=== PATIENT | female | born 1995 | race Caucasian/White ===

== ENCOUNTER 2018-03-04 19:35 | Emergency (ER) | payer SELFPAY ==
[2018-03-04 20:05] VITALS: RESP 18
[2018-03-04 20:36] LABS: SQUAMOUS EPITHIAL 2 /hpf (0-5); URINE BILIRUBIN NEGATIVE (NEGATIVE); URINE BLOOD NEGATIVE (NEGATIVE); URINE CLARITY Clear (Clear); URINE COLOR Yellow (YELLOW); URINE GLUCOSE (UA) NORMAL (Normal); URINE LEUKOCYTE ESTERASE TRACE Leu/uL (Negative); URINE PROTEIN NEGATIVE (NEGATIVE); URINE UROBILINOGEN NORMAL mg/dL (0.2-1.0)
[2018-03-04 20:37] LABS: HCG,QUALITATIVE URINE NEGATIVE (NEGATIVE)
--- NOTE | 2018-03-04 20:47 | C.PDOC ---
History Of Present Illness 23 y/o female, w/ PMhx of GERD, presents to the ER complaining of LLQ and periumbilical abdominal pain which began yesterday. Patient states that the symptoms do not feel similar to her previous episodes of GERD. Patient reports that she did not take any medications for the pain. She notes that she had her LMP on 02/12/18, it was normal. Denies having nausea, vomiting, constipation, diarrhea, dysuria, and hematuria. Time Seen by Provider: 03/04/18 20:43 Chief Complaint (Nursing): Abdominal Pain History Per: Patient History/Exam Limitations: no limitations Onset/Duration Of Symptoms: Days Current Symptoms Are (Timing): Still Present Severity: Moderate Location Of Pain/Discomfort: LLQ, Periumbilical Past Medical History Reviewed: Historical Data, Nursing Documentation, Vital Signs Vital Signs: Last Vital Signs Temp 98.3 F 03/04/18 23:14 Pulse 82 03/04/18 23:14 Resp 18 03/04/18 23:14 BP 104/65 03/04/18 23:14 Pulse Ox 98 03/04/18 23:14 - Medical History PMH: GERD Surgical History: No Surg Hx Family History: States: No Known Family Hx - Social History Hx Alcohol Use: Yes Hx Substance Use: No - Immunization History Hx Tetanus Toxoid Vaccination: No Hx Influenza Vaccination: No Hx Pneumococcal Vaccination: No Review Of Systems Except As Marked, All Systems Reviewed And Found Negative. Constitutional: Negative for: Fever, Chills Gastrointestinal: Positive for: Abdominal Pain. Negative for: Nausea, Vomiting, Diarrhea, Constipation Genitourinary: Negative for: Dysuria, Hematuria Physical Exam - Physical Exam Appears: Non-toxic, No Acute Distress Skin: Normal Color, Warm, Dry Head: Atraumatic, Normacephalic Eye(s): bilateral: Normal Inspection Nose: Normal Oral Mucosa: Moist Neck: Supple, Other (no meningeal signs) Chest: Symmetrical Cardiovascular: Rhythm Regular Respiratory: Normal Breath Sounds, No Rales, No Rhonchi, No Wheezing Gastrointestinal/Abdominal: Soft, Tenderness (periumbilical tenderness), No Guarding, No Rebound Extremity: Normal ROM Neurological/Psych: Oriented x3, Normal Speech ED Course And Treatment - Laboratory Results Result Diagrams: 03/04/18 21:11 03/04/18 21:11 O2 Sat by Pulse Oximetry: 99 (RA) Pulse Ox Interpretation: Normal Medical Decision Making Medical Decision Makin yr old female p/w periumiblical abdominal pain w/ concern for appendicitis. Will CT No dark or bloody stool. No urinary complaints. No vaginal d/c or rashes. Plan: --Labs --UA --CT - Abd & Pelv. CT w/ enteritis -small bowel PT in NAD, resting comfortably abd pain resolved, abd soft, non-ttp, no rebound or guarding will rx and have pt follow up w/ gi Disposition - Disposition Referrals: [facility] [Outside] Non [facility] Provider, [Primary Care Provider] - Hitesh Chaidez MD [Staff Provider] - Disposition: HOME/ ROUTINE Disposition Time: 23:00 Condition: GOOD Prescriptions: RX: Ciprofloxacin [Cipro] 500 mg PO BID 12 Days #24 tab Metronidazole [Flagyl] 500 mg PO TID 12 Days #36 tablet Instructions: Acute Abdomen (Belly Pain) Forms: [employer] (Kazakh) - Clinical Impression Clinical Impression: Enteritis - Scribe Statement The provider has reviewed the documentation as recorded by the Yunieribe Bridger Hernandez Provider Attestation: All medical record entries made by the Scribe were at my direction and personally dictated by me. I have reviewed the chart and agree that the record accurately reflects my personal performance of the history, physical exam, medical decision making, and the department course for this patient. I have also personally directed, reviewed, and agree with the discharge instructions and disposition.
[2018-03-04 21:14] LABS: BASO % 0.3 % (0.0-2.0); EOS # 0.1 K/uL (0.0-0.7); HEMOGLOBIN 13.9 g/dL (11.0-16.0); LYMPH # 1.9 K/uL (1.0-4.3); LYMPH % 15.8 % (20.0-40.0); MEAN CELL VOLUME 86.8 fL (81.0-99.0); MEAN CORPUSCULAR HEMOGLOBIN 30.1 pg (27.0-31.0); MEAN CORPUSCULAR HGB CONC 34.6 g/dL (33.0-37.0); MEAN PLATELET VOLUME 8.3 fL (7.2-11.7); MONO # 0.8 K/uL (0.0-0.8); MONO % 6.6 % (0.0-10.0); NEUT # 9.3 K/uL (1.8-7.0); NEUT % 76.3 % (50.0-75.0); NRBC % 0.2 % (0.0-2.0); RBC 4.63 Mil/uL (3.80-5.20); WHITE BLOOD COUNT 12.1 K/uL (4.8-10.8)
[2018-03-04 21:28] LABS: ALB/GLOB RATIO 1.3 (1.0-2.1); ALBUMIN 4.9 g/dL (3.5-5.0); ALT/SGPT 44 U/L (9-52); AST/SGOT 26 U/L (14-36); BLOOD UREA NITROGEN 17 mg/dL (7-17); CALCIUM 10.1 mg/dl (8.6-10.4); GFR NON-AFRICAN AMERICAN > 60; LIPASE 199 U/L (23-300)
[2018-03-04] MEDS ORDERED: Iodixanol 320 MG/ML 100 ML BOTTLE IV ONE (21:34)
[2018-03-04 23:15] VITALS: BP 104/65; PULSE 82; TEMP 98.3
[2018-03-05 00:45] VITALS: O2SAT 99
--- NOTE | 2018-03-05 10:32 | CT ---
Date of service: 03/04/2018 PROCEDURE: CT Abdomen and Pelvis with intravenous contrast HISTORY: periumbilical pain COMPARISON: None. TECHNIQUE: Multiple contiguous axial images were performed through the abdomen and pelvis with intravenous contrast. Subsequently, sagittal and coronal reformatted images were obtained. Radiation dose: Total exam DLP = 586 mGy-cm. This CT exam was performed using one or more of the following dose reduction techniques: Automated exposure control, adjustment of the mA and/or kV according to patient size, and/or use of iterative reconstruction technique. FINDINGS: LOWER THORAX: Unremarkable. LIVER: Unremarkable. No gross lesion or ductal dilatation. GALLBLADDER AND BILE DUCTS: Unremarkable. PANCREAS: Unremarkable. No gross lesion or ductal dilatation. SPLEEN: Unremarkable. ADRENALS: Unremarkable. No mass. 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 Right kidney is located in the right lower abdomen and pelvis. Mild fullness of the left renal collecting system. VASCULATURE: Unremarkable. No aortic aneurysm. BOWEL: Thick walled fluid-filled duodenum and loops of jejunum as well as ileum compatible with enteritis. Infectious and inflammatory etiologies are considered. Consider consultation with GI service and follow-up with upper endoscopy and colonoscopy. APPENDIX: No findings to suggest acute appendicitis. PERITONEUM: Unremarkable. No free fluid. No free air. LYMPH NODES: Unremarkable. No enlarged lymph nodes. BLADDER: Unremarkable. REPRODUCTIVE: Complex/involuting hemorrhagic left ovarian cyst seen measuring 2.5 millimeters. Correlation with pelvic ultrasound may be helpful if clinically indicated. BONES: Degenerative changes in the spine. OTHER FINDINGS: Small fat containing umbilical hernia. IMPRESSION: 1. Enteritis. Infectious and inflammatory etiologies are considered. Consider consultation with GI service and follow-up with upper endoscopy and colonoscopy. 2. Small fat containing umbilical hernia. 3. Complex/ involutiong hemorrhagic left ovarian cyst is seen measuring 2.5 millimeters. Correlation with pelvic ultrasound is recommended. 4. 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 Right kidney is located in the right lower abdomen and pelvis. Mild fullness of the left renal collecting system. Clinical correlation. These findings were preliminarily reported at 10:13 p.m. on 03/04/[address] Ajith Hopson from [employer].
== END 2018-03-04 23:15 | disposition home or self-care (01) ==
LOC: SUPCPDRO 19:35 → C.ER 19:35
DX: K52.9 Noninfective gastroenteritis and colitis, unspecified (principal)
CPT/HCPCS: 74177; 80053; 81001; 83690; 83735; 84703; 85025; 99284; Q9967